=== PATIENT | male | born 1965 | race Two or more races ===

== ENCOUNTER 2016-09-08 01:24 | Emergency (ER) | payer OTHER ==
[2016-09-08] MEDS ORDERED: OXYCODONE/ACETAMINOPHEN 5/325 MG TABLET ONE (02:37)
== END 2016-09-08 02:51 | disposition home or self-care (01) ==
LOC: ED 01:24
DX: H57.12 Ocular pain, left eye (principal)
CPT/HCPCS: 99282; 99283; A9270